=== PATIENT | female | born 1995 | race Two or more races ===

== ENCOUNTER 2022-10-21 19:08 | Inpatient (IN) | payer MEDICAID, SELFPAY ==
[2022-10-21] VITALS (44 sets, daily range): BP systolic 69–95; BP diastolic 33–59; PULSE 111–154; RESP 14–54; TEMP 36.6–39.5; O2SAT 86–98; BMI 25.7; BMI 24.9
--- NOTE | 2022-10-21 19:29 | XR_ITS ---
The [address] [address] Patient Name: CHINEDU VICTOR MRN: [id number] date: 1995 Sex: F Assigned Patient Location: ER Current Patient Location: ER Accession/Order Number: [id number] Exam Date: 10/21/2022 20:28 Report Date: 10/21/2022 20:43 At the request of: PRABHA ROQUE Procedure: XR chest 1V Exam: Radiographs: XR chest 1V Reason for exam: fever Comparison: None XR/XR chest 1V IMPRESSION: Unremarkable chest x-ray. Electronically authenticated by: ISAAC MEYER Date: 10/21/2022 20:43
--- NOTE | 2022-10-21 19:29 | ECG_ITS ---
The [facility] Test Date: 2022-10-21 Pat Name: CHINEDU VICTOR Department: Room: - Gender: Female Chief Design Engineer: : 1995 Requested By: [id number] Order Number: [id number] Reading MD: YURY SCHMID Measurements Intervals [place] Rate: 151 P: -66 AL: 116 QRS: 99 QRSD: 92 T: 49 QT: 282 QTc: 368 Interpretive Statements Sinus tachycardia 7102 Moderate right axis deviation 9140 abnormal rhythm ECG No previous ECG available for comparison Electronically Signed On 10-22-2022 7:11:35 EDT by YURY SCHMID
[2022-10-21 19:40] LABS: Basophils Percent Auto 0.2 % (0.2-2.0); Eosinophils Percent Auto 0.9 % (0.9-7.0); Hematocrit 33.9 % (36.0-48.0); Hemoglobin 11.4 g/dL (12.0-16.0); Immature Granulocytes Abs Auto 0.01 10^3/uL (0.00-0.03); Immature Granulocytes Pct Auto 0.2 % (0.0-0.5); Lymphocytes Absolute Auto 0.6 10^3/uL (1.2-3.8); Lymphocytes Percent Auto 13.8 % (20.5-60.0); Mean Corpuscular HGB Conc 33.6 g/dL (29.9-35.2); Mean Corpuscular Hemoglobin 27.7 pg (26.7-34.0); Mean Corpuscular Volume 82.3 fL (81.0-99.0); Mean Platelet Volume 9.5 fL (9.5-13.5); Monocytes Absolute Auto 0.1 10^3/uL (0.3-0.8); Monocytes Percent Auto 2.1 % (1.7-12.0); Neutrophils Absolute Auto 3.6 10^3/uL (1.4-6.5); Neutrophils Percent Auto 82.8 % (43.0-75.0); Platelet Count 229 10^3/uL (150-450); Red Blood Count 4.12 10^6/uL (4.20-5.40); Red Cell Distribution Width 14.5 % (11.0-15.0); White Blood Count 4.3 10^3/uL (4.0-11.0)
--- NOTE | 2022-10-21 19:50 | US_ITS ---
The [address] [address] Patient Name: CHINEDU VICTOR MRN: [id number] date: 1995 Sex: F Assigned Patient Location: ER Current Patient Location: [facility] Accession/Order Number: [id number] Exam Date: 10/21/2022 20:40 Report Date: 10/21/2022 21:44 At the request of: PRABHA ROQUE Procedure: US renal BI EXAM: Complete renal ultrasound REASON FOR EXAM: Female, 27 years, fever, pain. TECHNIQUE: Transabdominal ultrasound was performed with real-time and static grayscale imaging. TECHNICAL QUALITY: Technique is adequate. COMPARISON: None FINDINGS: RIGHT KIDNEY: Normal size of the kidney. The kidney measures 11.1 x 5.4 x 5.1 cm. The renal cortex appears somewhat echogenic relative to adjacent hepatic parenchyma suggesting medical renal disease. There is no demonstrated renal mass or cyst. There is no hydronephrosis. There is a 4 mm echogenic focus at the inferior pole of the right kidney suggesting a nonobstructing calculus. LEFT KIDNEY: Normal size of the kidney. The kidney measures 10.5 x 4.1 x 4.1 cm. Normal renal cortex. There is no demonstrated renal mass or cyst. There is no hydronephrosis. There are 2 small echogenic foci within the left kidney, the largest measuring 4 mm, suggesting nonobstructing renal calculi. Bladder: The bladder is nearly empty at the time of scanning. The bladder wall is not thickened. There is no visualized bladder wall mass. AORTA: Not imaged. IVC: Not imaged. US/US renal BI IMPRESSION: Bilateral nonobstructing renal calculi. No hydronephrosis. The right renal cortex is echogenic relative to adjacent hepatic parenchyma. This may represent medical renal disease. Electronically authenticated by: CARLENE DESAI Date: 10/21/2022 21:44
[2022-10-21 19:53] LABS: Alanine Aminotransferase 48 U/L (14-59); Albumin Globulin Ratio 0.8; Albumin Level 3.1 g/dL (3.4-5.0); Alkaline Phosphatase 154 U/L (46-116); Anion Gap 14.9; Aspartate Amino Transferase 34 U/L (15-37); BUN Creatinine Ratio 14.5; Bilirubin Total 1.2 mg/dL (0.2-1.0); Calcium 8.5 mg/dL (8.5-10.1); Carbon Dioxide 23.1 mmol/L (21.0-32.0); Chloride 98 mmol/L (98-107); Estimated GFR (African America >60 (>=60); Estimated GFR (Non-African Ame 53 (>=60); Globulin 3.7 g/dL; Glucose 131 mg/dL (74-106); Magnesium 1.7 mg/dL (1.8-2.4); Sodium 133 mmol/L (136-145); Total Protein 6.8 g/dL (6.4-8.2)
[2022-10-21] MEDS: IBUPROFEN 400 MG TABLET 800 MG PO (19:57)
[2022-10-21] MEDS: ACETAMINOPHEN 500 MG TABLET 1000 MG PO (19:57)
[2022-10-21] MEDS: ONDANSETRON PF 4 MG/2 ML VIAL IV (19:58)
[2022-10-21] MEDS: 0.9 % SODIUM CHLORIDE 1,000 ML 999 ML IV (19:59)
[2022-10-21] MEDS: CEFTRIAXONE 1,000 MG in 0.9 % SODIUM CHLORIDE 50 ML 100 MG IV (20:01)
[2022-10-21] MEDS: 0.9 % SODIUM CHLORIDE 1,000 ML 1000 ML IV ×2 (20:11→21:46)
[2022-10-21 20:41] LABS: Bilirubin Urine SMALL (NEGATIVE); Blood Urine LARGE (NEGATIVE); Clarity Urine CLEAR (CLEAR); Color Urine YELLOW (YELLOW); Glucose Urine UA NEGATIVE (NEGATIVE); Ketones Urine TRACE mg/dL (NEGATIVE); Leukocyte Esterase Urine LARGE (NEGATIVE); Nitrite Urine NEGATIVE (NEGATIVE); Protein Urine >=300 mg/dL (NEG/TRACE); Specific Gravity Urine 1.025 (1.005-1.025); pH Urine 5.5 (5.0-9.0)
[2022-10-21 20:43] LABS: Urine Microscopic Indicated YES
[2022-10-21] MEDS: POTASSIUM BICARBONATE/CIT 25 MEQ TABLET EFF 50 MEQ PO (20:53)
[2022-10-21] MEDS: MAGNESIUM SULFATE IN WATER 50 ML IV (20:54)
[2022-10-21 21:00] LABS: Bacteria Urine LARGE #/HPF (NONE SEEN); WBC Urine 20-50 #/HPF (NONE SEEN)
[2022-10-21 21:01] LABS: Cast Seen? SEEN #/LPF (NONE SEEN); Crystals Seen? None Seen #/HPF (None Seen); Fine Granular Casts Urine RARE; Mucus Urine NONE SEEN (NONE SEEN); Squamous Epithelial Cell Urine FEW #/LPF (NONE/RARE); Urine Culture Indicated YES
[2022-10-21 22:56] LABS: PCO2 VBG 34.9 mmHg (40.0-52.0); pH VBG 7.414 (7.330-7.430)
--- NOTE | 2022-10-21 23:26 | W.PM.TELEPN ---
Progress Note: Subjective Subjective Interval history: Pt is a 27F with PMH of Seizures who presents to the ED with complaint of flank pain and fevers. She was recently diagnosed wiht R UVJ stone, 1.5mm on Thursday, and since that time has progressively worsened. She reports Vomiting, fevers/chills, diminished appetite and poor PO intake, as well as dizziness and near syncope with ambulation. Her BP with noted to be 84/48 with a HR in the 160s on initial presentation as well as a fever of 103. She was given 3L NS and her BP remains low, though at this time she states she is feeling overall better than when she first arrived. Exam Narrative Exam Narrative: Gen: Cheerful, alert. NAD HEENT: NC/AT Neck: FROM CV: Tachycardic. No murmur Pulm: CTA B/L GI: Nontender Musculoskeletal: BURNS. Cap refill <2sec. No cyanosis or edema Neuro: AAOx3 Psych: Calm, Cooperative. Constitutional Vital Signs, click to edit/add: Last Vital Signs Temp 97.8 F 10/21/22 21:21 Pulse 123 H 10/21/22 22:00 Resp 34 H 10/21/22 22:00 BP 93/49 10/21/22 22:00 Pulse Ox 94 L 10/21/22 19:45 O2 Del Method Room Air 10/21/22 19:35 Progress Note: Objective Labs Labs: Short CBC 10/21/22 Range/Units 19:28 WBC 4.3 (4.0-11.0) 10^3/uL Hgb 11.4 L (12.0-16.0) g/dL Hct 33.9 L (36.0-48.0) % Plt Count 229 (150-450) 10^3/uL BMP 10/21/22 19:28 Sodium 133 L Potassium 3.0 L Chloride 98 Carbon Dioxide 23.1 BUN 18.0 Creatinine 1.24 H Glucose 131 H Calcium 8.5 Liver Function 10/21/22 Range/Units 19:28 Total Bilirubin 1.2 H (0.2-1.0) mg/dL AST 34 (15-37) U/L ALT 48 (14-59) U/L Alkaline Phosphatase 154 H (46-116) U/L Albumin 3.1 L (3.4-5.0) g/dL Urine 08/29/23 Range/Units 20:05 Urine Color Yellow (YELLOW) Urine Clarity Clear (CLEAR) Urine pH 5.5 (5.0-9.0) Ur Specific [place] 1.025 (1.005-1.025) Urine Protein >=300 A (NEG/TRACE) mg/dL Urine Glucose (UA) Negative (NEGATIVE) mg/dL Progress Note: A&P Assessment and Plan (1) Sepsis: Assessment and Plan: Tachycardia, Fever, Hypotension Continue IV Fluid Bolus another 1L Consider pressor support if fails to improve Pt currently awake and alert Cap refill <2sec. Monitor closely in IMU (2) Acute pyelonephritis: Assessment and Plan: Pancultures pending Continue empiric antibiotic coverage Follow up cultures (3) Acute hypokalemia: Assessment and Plan: Replete Monitor response (4) Hypomagnesemia: Assessment and Plan: Replete Monitor response Telemedicine Attestation Telemedicine Attestation I conducted this encounter from [[place]] via secure live, [id number] video conference with the patient, located at [facility] with [nurse]. Prior to the interview, the risks and benefits of telemedicine were discussed with the patient and verbal consent was obtained.
--- NOTE | 2022-10-21 23:47 | ED.ABDPAIN1 ---
HPI - Abdominal Pain General Chief Complaint: Abdominal Pain Stated Complaint: FLANK PAIN Time Seen by Provider: 10/21/22 19:29 Source: patient and family Mode of arrival: walk-in Limitations: no limitations History of Present Illness HPI narrative: Patient says emergency department complaining of right flank pain. Patient states she has been sick for approximately 2 weeks. She developed right flank pain on Thursday and went to [facility] emergency Department where she had blood work and a CT scan done and was found to have a 1.5 mm nephrolithiasis in the right UVJ. Patient states she was given IV fluids and Naprosyn and she went home. She states she was told to strain the urine but they did not give her a strainer. She does not know if she has passed a stone or not yet. She was given Flomax also. She has been taking it daily. Patient states she has vomited 2 times she developed a fever and is feeling very weak. She denies any hematuria or dysuria. She denies any vaginal bleeding, discharge. She denies any diarrhea. She denies any sore throat, chest pain, shortness of breath. Patient stated she was having a lot of palpitations. She denied any shortness of breath. Related Data Home Medications Medication Instructions Recorded Confirmed aripiprazole 10 mg tablet 10 mg PO DAILY 10/21/22 10/21/22 hydroxyzine pamoate 50 mg capsule 50 mg PO DAILY PRN anxiety 10/21/22 10/21/22 lamotrigine 100 mg tablet 100 mg PO BID 10/21/22 10/21/22 naproxen 500 mg tablet 500 mg PO Q8H 10/21/22 10/21/22 omeprazole 40 mg capsule,delayed 40 mg PO DAILY 10/21/22 10/21/22 release paroxetine HCl 30 mg tablet 30 mg PO DAILY 10/21/22 10/21/22 prazosin 1 mg capsule 1 mg PO DAILY 10/21/22 10/21/22 tamsulosin 0.4 mg capsule 0.4 mg PO DAILY 10/21/22 10/21/22 Allergies Allergy/AdvReac Type Severity Reaction Status Date / Time montelukast [From Singulair] AdvReac Mild Verified 10/21/22 19:13 Review of Systems ROS Status of ROS 10 or more systems reviewed and unremarkable except as noted in history and below [facility] Medical History (Updated 10/21/22 @ 23:12 by Kacy Dalton) Social History (Updated 10/21/22 @ 23:15 by Kacy Dalton) Within the past year, how often did you have a drink containing alcohol: monthly or less Within the past year, how often did you have six or more drinks on one occasion: never Second hand tobacco smoke exposure: Yes Non-prescribed substance use: denies use Previous occupational history: unemployed Highest level of school completed/degree received: high school graduate In a typical week, how many times do you talk on the telephone with family, friends, or neighbors: 3 or more times per week How often do you get together with friends or relatives: 3 or more times per week How often do you attend gnosticism or scientology services: never Do you belong to any clubs or organizations such as gnosticism groups unions, [employer] or athletic groups, or school groups: no Little interest or pleasure in doing things: not at all Feeling down, depressed, or hopeless: not at all Feel stressed/tense/nervous/anxious/difficulty sleeping: only a little Due to disability, difficulty making decisions: No Do you think of yourself as: straight/heterosexual Gender Identity: female Exam Narrative Exam Narrative: Nurses notes and vital signs reviewed and patient is not hypoxic. General: Ill-appearing, and in no apparent distress. Skin: Warm, dry, no pallor noted. No Rash Head: Normocephalic, atraumatic. Neck: Supple, non-tender. Eye: Pupils are equal, round and EOMI. No scleral icterus. Ears, Nose, Mouth, and Throat: TM clear, no posterior oropharynx erythema or nasal mucosal hypertrophy, uvula is mid-line Oral mucosa is dry Cardiovascular: Regular tachycardia without murmur, gallop or rub. Respiratory: No accessory muscle use or respiratory distress. Lungs are clear to auscultation, no wheezing, rales or rhonchi Chest Wall: no tenderness Back: No midline thoracic or lumbar vertebral tenderness. + right CVA tenderness Musculoskeletal: normal ROM, no calf or popliteal tenderness, no lower extremity edema/swelling GI: Abdomen is soft, non-distended. Normal bowel sounds. No tenderness to palpation. No rebound, guarding, or rigidity noted. Neurological: A&O x4. No cranial nerve dysfunction observed. No truncal ataxia. Moves all extremities. Sensation intact. Psychiatric: Cooperative and interactive. Normal mood and affect. Constitutional Vital Signs, click to edit/add: Last Vital Signs Temp 98 F 10/21/22 23:03 Pulse 122 H 10/21/22 23:56 Resp 22 10/21/22 23:30 BP 84/48 L 10/21/22 23:03 Pulse Ox 95 10/21/22 23:56 O2 Del Method Room Air 10/21/22 23:39 Course Vital Signs Vital signs: Vital Signs Pulse Oximetry 86 L 10/21/22 19:16 Temperature 98 F 10/21/22 23:03 Pulse Rate 122 H 10/21/22 23:56 Respiratory Rate 22 10/21/22 23:30 Blood Pressure 84/48 L 10/21/22 23:03 Pulse Oximetry 95 10/21/22 23:56 Oxygen Delivery Method Room Air 10/21/22 23:39 MDM - Abdominal Pain MDM Narrative Medical decision making narrative: On arrival to the emergency department the patient met sepsis criteria. She was tachycardia in the 160s, temperature 103, and hypotensive. Patient was immediately resuscitated with 30 no particular kilogram normal saline fluid boluses, her pressure improved to the low 90s and her heart rate came down to 122. Patient was given Toradol, acetaminophen, Zofran. She was given a gram of Rocephin after urinalysis showed a urinary tract infection. The patient had a bilateral kidney ultrasound which does not show any hydronephrosis. The patient has improved somewhat clinically she still with low blood pressure still tachycardic. She weren't hospitalization for observation to make sure she is improving. Patient was discussed with Dr. Landin who has accepted the patient. Differential Diagnosis Differential diagnosis: Likely abdominal pain Medical Records Attestation: I reviewed the patient's medical records. Medical records narrative: Records from [facility] were obtained and reviewed by me. They make part of the medical decision aching. Lab Data Attestation: I reviewed the patient's lab results. Labs: Lab Results 10/21/22 10/21/22 10/21/22 Range/Units 19:28 19:48 20:05 WBC 4.3 (4.0-11.0) 10^3/uL RBC 4.12 L (4.20-5.40) 10^6/uL Hgb 11.4 L (12.0-16.0) g/dL Hct 33.9 L (36.0-48.0) % MCV 82.3 (81.0-99.0) fL MCH 27.7 (26.7-34.0) pg MCHC 33.6 (29.9-35.2) g/dL RDW 14.5 (11.0-15.0) % Plt Count 229 (150-450) 10^3/uL MPV 9.5 (9.5-13.5) fL Neut % (Auto) 82.8 H (43.0-75.0) % Lymph % (Auto) 13.8 L (20.5-60.0) % [place] % (Auto) 2.1 (1.7-12.0) % Eos % (Auto) 0.9 (0.9-7.0) % Baso % (Auto) 0.2 (0.2-2.0) % Neut # (Auto) 3.6 (1.4-6.5) 10^3/uL Lymph # (Auto) 0.6 L (1.2-3.8) 10^3/uL [place] # (Auto) 0.1 L (0.3-0.8) 10^3/uL Eos # (Auto) 0.0 (0.0-0.7) 10^3/uL Baso # (Auto) 0.0 (0.0-0.1) 10^3/uL Abs Immat Gran (auto) 0.01 (0.00-0.03) 10^3/uL Imm/Tot Granulo (auto) 0.2 (0.0-0.5) % VBG pH 7.414 (7.330-7.430) VBG pCO2 34.9 L (40.0-52.0) mmHg Sodium 133 L (136-145) mmol/L Potassium 3.0 L (3.5-5.1) mmol/L Chloride 98 (98-107) mmol/L Carbon Dioxide 23.1 (21.0-32.0) mmol/L Anion Gap 14.9 BUN 18.0 (7.0-18.0) mg/dL Creatinine 1.24 H (0.55-1.02) mg/dL Est GFR ( Amer) >60 (>=60) Est GFR (Non-Af Amer) 53 L (>=60) BUN/Creatinine Ratio 14.5 Glucose 131 H (74-106) mg/dL Lactate 2.0 (0.4-2.0) mmol/L Calcium 8.5 (8.5-10.1) mg/dL Magnesium 1.7 L (1.8-2.4) mg/dL Total Bilirubin 1.2 H (0.2-1.0) mg/dL AST 34 (15-37) U/L ALT 48 (14-59) U/L Alkaline Phosphatase 154 H (46-116) U/L Total Protein 6.8 (6.4-8.2) g/dL Albumin 3.1 L (3.4-5.0) g/dL Globulin 3.7 g/dL Albumin/Globulin Ratio 0.8 Urine Color Yellow (YELLOW) Urine Clarity Clear (CLEAR) Urine pH 5.5 (5.0-9.0) Ur Specific [place] 1.025 (1.005-1.025) Urine Protein >=300 A (NEG/TRACE) mg/dL Urine Glucose (UA) Negative (NEGATIVE) mg/dL Urine Ketones Trace A (NEGATIVE) mg/dL Urine Occult Blood Large A (NEGATIVE) Urine Nitrite Negative (NEGATIVE) Urine Bilirubin Small A (NEGATIVE) Urine Urobilinogen 2.0 A (0.2-1.0) EU/dL Ur Leukocyte Esterase Large A (NEGATIVE) Urine RBC 10-20 A (0-2) #/HPF Urine WBC 20-50 A (NONE SEEN) #/HPF Ur Squamous Epith Cells Few A (NONE/RARE) #/LPF Urine Crystals None seen (None Seen) #/HPF Urine Bacteria Large A (NONE SEEN) #/HPF Urine Casts Seen A (NONE SEEN) #/LPF Fine Granular Casts Rare Urine Mucus None seen (NONE SEEN) Ur Culture Indicated? Yes ECG Data Attestation: I personally reviewed and interpreted this ECG as follows: Interpretation: His tachycardia without any acute ischemic changes. Critical Care Time Critical Care Time Critical Care Time: Yes Total Critical Care Time: 35 Attestation: Critical Care Time: 35 minutes, critical care time is separate from any procedures that are performed. The following was considered in the determination of critical care but not limited to the level medical decision-making, intensive cardiac and/or respiratory monitor, frequent vital sign monitoring, evaluation of laboratory studies, evaluation of a radiographic studies, oxygen monitoring and constant monitoring. Discharge Plan Discharge Chief Complaint: Abdominal Pain Clinical Impression: Acute pyelonephritis, Sepsis, Acute hypokalemia, Hypomagnesemia Patient Disposition: Admitted as Observation Time of Disposition Decision: 22:04 Condition: Good Discharge Date/Time: 10/21/22 22:58
[2022-10-22] VITALS (36 sets, daily range): BP systolic 75–115; BP diastolic 52–74; PULSE 91–141; RESP 14–30; TEMP 36.4–38.2; O2SAT 83–97; BMI 24.9
[2022-10-22] MEDS: 0.9 % SODIUM CHLORIDE 1,000 ML 1000 ML IV (00:21)
[2022-10-22] MEDS: ENOXAPARIN SODIUM 40 MG/0.4 ML SYRINGE SUBQ ×2 (00:21→21:21)
[2022-10-22] MEDS: LAMOTRIGINE 100 MG TABLET PO ×4 (00:46→21:23)
[2022-10-22] MEDS: PAROXETINE HCL 20 MG TABLET 30 MG PO ×2 (00:47→21:22)
[2022-10-22] MEDS: 0.9 % SODIUM CHLORIDE 1,000 ML 100 ML IV (01:28)
[2022-10-22 05:10] LABS: Basophils Percent Auto 0.2 % (0.2-2.0); Hematocrit 28.6 % (36.0-48.0); Hemoglobin 9.3 g/dL (12.0-16.0); Immature Granulocytes Abs Auto 0.09 10^3/uL (0.00-0.03); Immature Granulocytes Pct Auto 0.7 % (0.0-0.5); Lymphocytes Absolute Auto 1.1 10^3/uL (1.2-3.8); Lymphocytes Percent Auto 8.4 % (20.5-60.0); Mean Corpuscular HGB Conc 32.5 g/dL (29.9-35.2); Mean Corpuscular Hemoglobin 27.4 pg (26.7-34.0); Mean Corpuscular Volume 84.4 fL (81.0-99.0); Mean Platelet Volume 9.6 fL (9.5-13.5); Monocytes Absolute Auto 0.6 10^3/uL (0.3-0.8); Neutrophils Absolute Auto 11.1 10^3/uL (1.4-6.5); Neutrophils Percent Auto 85.7 % (43.0-75.0); Platelet Count 190 10^3/uL (150-450); Red Blood Count 3.39 10^6/uL (4.20-5.40); Red Cell Distribution Width 14.7 % (11.0-15.0); White Blood Count 12.9 10^3/uL (4.0-11.0)
[2022-10-22 05:27] LABS: Alanine Aminotransferase 36 U/L (14-59); Albumin Globulin Ratio 0.7; Albumin Level 2.3 g/dL (3.4-5.0); Alkaline Phosphatase 115 U/L (46-116); Anion Gap 12.5; Aspartate Amino Transferase 24 U/L (15-37); BUN Creatinine Ratio 10.9; Bilirubin Total 1.1 mg/dL (0.2-1.0); Calcium 7.3 mg/dL (8.5-10.1); Carbon Dioxide 23.4 mmol/L (21.0-32.0); Chloride 110 mmol/L (98-107); Estimated GFR (African America >60 (>=60); Estimated GFR (Non-African Ame 55 (>=60); Globulin 3.1 g/dL; Glucose 137 mg/dL (74-106); Magnesium 2.3 mg/dL (1.8-2.4); Potassium 3.9 mmol/L (3.5-5.1); Sodium 142 mmol/L (136-145); Total Protein 5.4 g/dL (6.4-8.2)
--- NOTE | 2022-10-22 06:19 | XR_ITS ---
The [address] [address] Patient Name: CHINEDU VICTOR MRN: [id number] date: 1995 Sex: F Assigned Patient Location: ICU Current Patient Location: ICU Accession/Order Number: [id number] Exam Date: 10/22/2022 06:35 Report Date: 10/22/2022 07:15 At the request of: RIDDHI MCNAIR Procedure: XR chest 1V EXAMINATION: XR chest 1V HISTORY: sob, chest pain COMPARISON: XR chest 10/21/2022 FINDINGS: LUNGS: Mild haziness and stranding within lung bases. VASCULATURE: No increased pulmonary vasculature. PLEURA: No pneumothorax, effusion, or pleural thickening. CARDIAC: No cardiomegaly or cardiac silhouette abnormality. MEDIASTINUM: No visible mass or adenopathy. BONES: No fracture or visible bone lesion. OTHER: Negative. XR/XR chest 1V IMPRESSION: 1. Mild bibasilar atelectasis versus infiltrates; new since prior study. Electronically authenticated by: MAXIMINO VICTOR Date: 10/22/2022 07:15
[2022-10-22 06:36] LABS: Troponin I High Sensitivity 20.7 pg/mL (4.0-51.3)
[2022-10-22 07:47] LABS: A. calcoaceticus-baumannii Cpx NOT DETECTED (NOT DETECTE); Bacteroides fragilis NOT DETECTED (NOT DETECTE); Candida albicans NOT DETECTED (NOT DETECTE); Candida auris NOT DETECTED (NOT DETECTE); Candida glabrata NOT DETECTED (NOT DETECTE); Candida krusei NOT DETECTED (NOT DETECTE); Candida parapsilosis NOT DETECTED (NOT DETECTE); Candida tropicalis NOT DETECTED (NOT DETECTE); Cryptococcus neoformans/gattii NOT DETECTED (NOT DETECTE); Enterobacter cloacae complex NOT DETECTED (NOT DETECTE); Enterococcus faecalis NOT DETECTED (NOT DETECTE); Enterococcus faecium NOT DETECTED (NOT DETECTE); Haemophilus influenzae NOT DETECTED (NOT DETECTE); Klebsiella aerogenes NOT DETECTED (NOT DETECTE); Klebsiella pneumoniae group NOT DETECTED (NOT DETECTE); Listeria monocytogenes NOT DETECTED (NOT DETECTE); Neisseria meningitidis NOT DETECTED (NOT DETECTE); Proteus spp. NOT DETECTED (NOT DETECTE); Pseudomonas aeruginosa NOT DETECTED (NOT DETECTE); Salmonella spp. NOT DETECTED (NOT DETECTE); Serratia marcescens NOT DETECTED (NOT DETECTE); Staphylococcus epidermidis NOT DETECTED (NOT DETECTE); Staphylococcus lugdunensis NOT DETECTED (NOT DETECTE); Staphylococcus spp. NOT DETECTED (NOT DETECTE); Stenotrophomonas maltophilia NOT DETECTED (NOT DETECTE); Streptococcus agalactiae NOT DETECTED (NOT DETECTE); Streptococcus pneumoniae NOT DETECTED (NOT DETECTE); Streptococcus pyogenes NOT DETECTED (NOT DETECTE); Streptococcus spp. NOT DETECTED (NOT DETECTE)
[2022-10-22] MEDS: ONDANSETRON PF 4 MG/2 ML VIAL IV ×2 (07:55→14:47)
--- NOTE | 2022-10-22 08:11 | PM.HP ---
H&P: HPI History of Present Illness Chief complaint: FLANK PAIN, SEPSIS, PYELONEPHRITIS Narrative: patient is a 27-year-old female with past medical history of epilepsy who presented to the Emergency Room last night with complaints of overall malaise nausea and vomiting and some right flank pain. Patient reports she has been sick for approximately two weeks. She presented to the Emergency Room and [facility] and was found to have a nonobstructing 1.5 mm stone in the right UVJ. She was discharged home with naproxen, Flomax and was given IV fluids. She reports that she continued to get worse and presented back to [place] [facility] last night with right flank pain. She is also been experiencing some nausea and vomiting for approximately twenty-four hours she denies any diarrhea she denies any burning with urination or blood in her urine. She had not been straining her urine because they didn't have a strainer. She denies any bladder urine or renal issues in the past. She has not had any history of kidney stones before. He only reports a history of epilepsy and she has been compliant with her medications. Patient was found to be septic in the emergency room. She was given approximately 4 L of fluid, and was given Rocephin for a presumed urinary tract infection. She had a fever of one oh three, tachycardic, hypotensive. She was admitted to ICU for further plan of care. This morning she notes improved nausea and vomiting. She denies diarrhea and also reports some mild chest pain. Review of Systems ROS Narrative ROS: a complete review of systems were reviewed with patient and are positive as below or listed in History of Chief Complaint. General: no fever, chills, night sweats Head: no headache, trauma, visual changes, nausea or vomiting Skin: no reported rashes, itching or sores Eyes: no blurriness of vision Ears: no reported hearing loss, vertigo, earache, or tinnitus Throat: no sore throat, hoarseness, swelling of neck, or tongue pain Heart: no chest pain Lungs: no shortness of breath or cough GI: diarrhea, some vomiting/nausea Urinary: no urinary urgency, frequency or pain, right flank pain Neuro: no numbness or tingling HEM: no bleeding issues or bruising ENDO: no thyroid problems Psych: no anxiety or depression [facility] Medical History (Updated 10/22/22 @ 10:08 by Jazmine Herrera DO) Social History Within the past year, how often did you have a drink containing alcohol: monthly or less Within the past year, how often did you have six or more drinks on one occasion: never Second hand tobacco smoke exposure: Yes Non-prescribed substance use: denies use Previous occupational history: unemployed Highest level of school completed/degree received: high school graduate In a typical week, how many times do you talk on the telephone with family, friends, or neighbors: 3 or more times per week How often do you get together with friends or relatives: 3 or more times per week How often do you attend moravian or adventist services: never Do you belong to any clubs or organizations such as moravian groups unions, [employer] or athletic groups, or school groups: no Little interest or pleasure in doing things: not at all Feeling down, depressed, or hopeless: not at all Feel stressed/tense/nervous/anxious/difficulty sleeping: only a little Due to disability, difficulty making decisions: No Do you think of yourself as: straight/heterosexual Gender Identity: female Meds Home Medications and Allergies Home Medications Medication Instructions Recorded Confirmed Type aripiprazole 10 mg tablet 10 mg PO DAILY 10/21/22 10/21/22 History hydroxyzine pamoate 50 mg capsule 50 mg PO DAILY PRN anxiety 10/21/22 10/21/22 History lamotrigine 100 mg tablet 100 mg PO BID 10/21/22 10/21/22 History naproxen 500 mg tablet 500 mg PO Q12H 10/21/22 10/22/22 History omeprazole 40 mg capsule,delayed 40 mg PO DAILY 10/21/22 10/21/22 History release paroxetine HCl 30 mg tablet 30 mg PO .QHS 10/21/22 10/22/22 History prazosin 1 mg capsule 1 mg PO DAILY 10/21/22 10/21/22 History tamsulosin 0.4 mg capsule 0.4 mg PO DAILY 10/21/22 10/21/22 History Allergies Allergy/AdvReac Type Severity Reaction Status Date / Time montelukast [From Singulair] Allergy Mild Rash Verified 10/22/22 08:49 Exam Narrative Exam Narrative: General: Patient is alert, and oriented to person, place and time with normal affect, proper hygiene Skin: no visible rashes, or ulcers Head: atraumatic, acephalic Eyes: PERRLA, no nystagmus present, conjunctiva clear, no scleral icterus Ears: normal Tympanic Membrane, normal gross auditory acuity Nose: symmetric, no discharge, no maxillary or frontal sinus tenderness Mouth/Throat: erythema, no exudate, or tonsillar enlargement, normal dentition Neck: no masses palpated, normal thyroid, no JVD or audible carotid bruits Heart: Normal rate and rhythm, no murmurs/rubs/gallops Lungs: no audible wheezes, crackles and normal breath sounds all lung muir Abdomen: Normal audible bowel sounds, no distension, No palpable masses, no organomegaly, no rebound/guarding/ or rigidity Musculoskeletal: muscle atrophy noted, ROM is limited due to being in hospital bed, no swelling bilateral lower extremities Vascular: Normal carotid, radial, femoral, posterior tibial, and dorsalis pedis pulses Lymph: no supraclavicular, axillary, or anterior/posterior cervical adenopathy Neuro: CN II-X grossly intact, normal sensation upper and lower extremities Constitutional Vital Signs, click to edit/add: Last Vital Signs Temp 97.7 F 10/22/22 05:35 Pulse 97 H 10/22/22 04:00 Resp 16 10/22/22 04:00 BP 93/68 10/22/22 04:00 Pulse Ox 94 L 10/22/22 04:00 O2 Del Method Room Air 10/21/22 23:39 Results Labs Labs: Short CBC 10/21/22 10/21/22 Range/Units 04:50 19:28 WBC 12.9 H 4.3 (4.0-11.0) 10^3/uL Hgb 9.3 L 11.4 L (12.0-16.0) g/dL Hct 28.6 L 33.9 L (36.0-48.0) % Plt Count 190 229 (150-450) 10^3/uL BMP 10/21/22 10/21/22 04:50 19:28 Sodium 142 133 L Potassium 3.9 3.0 L Chloride 110 H 98 Carbon Dioxide 23.4 23.1 BUN 13.0 18.0 Creatinine 1.19 H 1.24 H Glucose 137 H 131 H Calcium 7.3 L 8.5 Liver Function 10/21/22 10/21/22 Range/Units 04:50 19:28 Total Bilirubin 1.1 H 1.2 H (0.2-1.0) mg/dL AST 24 34 (15-37) U/L ALT 36 48 (14-59) U/L Alkaline Phosphatase 115 154 H (46-116) U/L Albumin 2.3 L 3.1 L (3.4-5.0) g/dL Urine 10/21/22 Range/Units 20:05 Urine Color Yellow (YELLOW) Urine Clarity Clear (CLEAR) Urine pH 5.5 (5.0-9.0) Ur Specific [place] 1.025 (1.005-1.025) Urine Protein >=300 A (NEG/TRACE) mg/dL Urine Glucose (UA) Negative (NEGATIVE) mg/dL ABG ABG results: 10/21/22 19:48 VBG pH 7.414 VBG pCO2 34.9 L Assessment and Plan Assessment and Plan (1) Acute pyelonephritis: Assessment and Plan: urine culture pending but blood cultures positive for Ecoli and Enterobacter, currently on Rocephin. May change once C&S come back, continue IVF, straining urine, may also repeat CT scan, awaiting read from [facility]. (2) Sepsis: Assessment and Plan: he is found to have a temperature 103 degrees Fahrenheit, tachycardic with heart rate in the 120s, hypotensive 80s over 50s. Sepsis protocol was initiated with rapid bolus fluid resuscitation. No further fever, heart rate has improved and blood pressure has also improved. Cultures are pending however preliminary culture positive for Escherichia coli and Enterobacter Qualifiers: Sepsis type: Escherichia coli Severe sepsis acute organ dysfunction type: acute renal failure (3) Acute renal failure: Assessment and Plan: secondary to sepsis and infection (4) Acute hypokalemia: Assessment and Plan: most likely dilutional effect however will replace with Klor-Con 20 mEq twice a day (5) Calculus of both kidneys: Assessment and Plan: non obstructive, ultrasound done, awaiting CT results from [facility], low threshold for repeat (6) Hypomagnesemia: Assessment and Plan: daily replaces needed (7) Seizures: Assessment and Plan: patient follows with neurology clinic clinic, continue home medication she has been compliant Plan patient is full code Lovenox for deep vein thrombosis prophylaxis Patient as inpatient status secondary to her sepsis and requiring ICU status for current condition.
--- NOTE | 2022-10-22 09:02 | CM.NOTE ---
Rounding with Dr. Herrera. Pt. in room, no visitors at this time. Continue to follow for any discharge needs. Mother expected to be here soon and Dr. Herrera stated she will [place] back to talk with her. Patient denies any other needs. Awaiting further test results.
[2022-10-22 09:04] LABS: CTX-M NOT DETECTED (NOT DETECTE); IMP NOT DETECTED (NOT DETECTE); KPC NOT DETECTED (NOT DETECTE); NDM NOT DETECTED (NOT DETECTE); OXA-48-like NOT DETECTED (NOT DETECTE); VIM NOT DETECTED (NOT DETECTE); mcr-1 NOT DETECTED (NOT DETECTE)
[2022-10-22 09:13] LABS: Enterobacterales DETECTED (NOT DETECTE)
[2022-10-22] MEDS: TAMSULOSIN HCL 0.4 MG CAPSULE PO (09:41)
[2022-10-22] MEDS: ARIPIPRAZOLE 5 MG TABLET 10 MG PO (09:42)
[2022-10-22] MEDS: POTASSIUM CHLORIDE 10 MEQ ER TABLET 20 MEQ PO (09:42)
[2022-10-22] MEDS: CEFTRIAXONE 1,000 MG in 0.9 % SODIUM CHLORIDE 50 ML 100 MG IV (09:43)
[2022-10-22] MEDS: OMEPRAZOLE 40 MG CAPSULE.DR PO (09:46)
--- NOTE | 2022-10-22 10:06 | PC.NURSE ---
updated with nely in blood cultures. Along with increased mausea and vomiting up pills. Mother requested to speak with >
[2022-10-22] MEDS: LACTATED RINGER'S SOLUTION 1,000 ML 125 ML IV ×2 (10:54→19:24)
[2022-10-22 11:20] LABS: Lactate/Lactic Acid 1.4 mmol/L (0.4-2.0)
[2022-10-22] MEDS: PROMETHAZINE HCL 25 MG TABLET PO (11:36)
--- NOTE | 2022-10-22 11:41 | PC.NURSE ---
Continues having nausea, received new orders from for PRN. Pt did eat bites and sips, still has moderate nausea. Mother remains at bedside.
[2022-10-22] MEDS: PIPERACILLIN SODIUM/TAZOBACTAM 3.375 GM in 0.9 % SODIUM CHLORIDE 50 ML IV ×2 (12:01→21:20)
[2022-10-22 14:34] LABS: Adenovirus NOT DETECTED (NOT DETECTE); Bordetella parapertussis NOT DETECTED (NOT DETECTE); Coronavirus 229E NOT DETECTED (NOT DETECTE); Coronavirus HKU1 NOT DETECTED (NOT DETECTE); Coronavirus NL63 NOT DETECTED (NOT DETECTE); Coronavirus OC43 NOT DETECTED (NOT DETECTE); Human Metapneumovirus NOT DETECTED (NOT DETECTE); Human Rhinovirus/Enterovirus NOT DETECTED (NOT DETECTE); Influenza A NOT DETECTED (NOT DETECTE); Influenza B NOT DETECTED (NOT DETECTE); Mycoplasma pneumoniae NOT DETECTED (NOT DETECTE); Parainfluenza Virus 1 NOT DETECTED (NOT DETECTE); Parainfluenza Virus 2 NOT DETECTED (NOT DETECTE); Parainfluenza Virus 3 NOT DETECTED (NOT DETECTE); Parainfluenza Virus 4 NOT DETECTED (NOT DETECTE); Respiratory Syncytial Virus NOT DETECTED (NOT DETECTE); SARS-CoV-2 NOT DETECTED (NOT DETECTE)
[2022-10-22] MEDS: HYDROXYZINE PAMOATE 25 MG CAPSULE 50 MG PO (15:59)
--- NOTE | 2022-10-22 17:01 | DIETREC ---
Dietary consult and nutrition assessment completed this date. Recommend Bhaskar eat food items she is able to tolerate w/o N/V at this time, even if amounts do not meet her estimated nutrient requirements. Intakes can be expected to improve as infection/inflammation resolve and alleviate s/sx N/V. Dietitian will continue to follow PRN.
[2022-10-22 18:18] LABS: Anion Gap 10.2; BUN Creatinine Ratio 10.9; Calcium 7.6 mg/dL (8.5-10.1); Carbon Dioxide 23.1 mmol/L (21.0-32.0); Chloride 111 mmol/L (98-107); Estimated GFR (African America >60 (>=60); Estimated GFR (Non-African Ame >60 (>=60); Glucose 179 mg/dL (74-106); Magnesium 2.1 mg/dL (1.8-2.4); Potassium 3.3 mmol/L (3.5-5.1); Sodium 141 mmol/L (136-145)
--- NOTE | 2022-10-22 20:30 | CT_ITS ---
[address] [address] Patient Name: CHINEDU VICTOR MRN: [facility]:[id number] date: 1995 Sex: F Assigned Patient Location: ICU Current Patient Location: ICU Accession/Order Number: [id number] Exam Date: 10/22/2022 22:18 Report Date: 10/22/2022 23:12 At the request of: FIORDALIZA LYNN Procedure: CT angio chest EXAM: CT angio chest HISTORY: acute hypoxia 82%ra, tachycardia. Suspicion for pulmonary embolism COMPARISON: Chest x-ray 10/22/2022 TECHNIQUE: Multiple axial views CT a chest PE protocol after administration of 100 mL Omnipaque 350 IV contrast. Coronal sagittal reformats. MIPS and/or similar series performed. 3-D reconstruction of the vasculature. FINDINGS: No evidence for acute pulmonary embolism from the main to the bilateral segmental pulmonary artery level. The bilateral subsegmental pulmonary arteries are obscured by respiratory motion. Multifocal moderate bilateral lower lobes lung consolidations are suspicious for infectious or inflammatory pneumonitis. Diffuse bilateral upper and lower lung groundglass opacities reflecting pulmonary edema. Small bilateral pleural effusions. Central airway is patent. Borderline prominent heart size with trace pericardial effusion, mediastinal edema, and pericardial recess fluid. No pneumomediastinum. Moderate size hiatal hernia. No acute bony abnormality. CT/CT angio chest IMPRESSION: No evidence for acute pulmonary embolism from the main to the bilateral segmental pulmonary artery level. The bilateral subsegmental pulmonary arteries are obscured by respiratory motion. Multifocal moderate bilateral lower lobes lung consolidations are suspicious for infectious or inflammatory pneumonitis. Correlate clinically. Diffuse bilateral upper and lower lung groundglass opacities reflecting pulmonary edema. Small bilateral pleural effusions. Correlate clinically for sequela volume overload or underlying heart congestion. Borderline prominent heart size with trace pericardial effusion, mediastinal edema, and pericardial recess fluid. No pneumomediastinum. Moderate size hiatal hernia. Electronically authenticated by: KIESHA CUMMINS Date: 10/22/2022 23:12
[2022-10-22] MEDS: POTASSIUM BICARBONATE/CIT 25 MEQ TABLET EFF 50 MEQ PO (21:21)
[2022-10-22] MEDS: ACETAMINOPHEN 325 MG TABLET 650 MG PO (21:22)
[2022-10-23] VITALS (111 sets, daily range): BP systolic 105–123; BP diastolic 66–77; PULSE 83–146; RESP 15–143; TEMP 36.5–36.8; O2SAT 91–100
[2022-10-23] MEDS: FUROSEMIDE 40 MG/4 ML VIAL IVP (01:00)
[2022-10-23] MEDS: PIPERACILLIN SODIUM/TAZOBACTAM 3.375 GM in 0.9 % SODIUM CHLORIDE 50 ML IV ×3 (04:21→20:44)
[2022-10-23 05:11] LABS: Basophils Percent Auto 0.3 % (0.2-2.0); Eosinophils Absolute Auto 0.1 10^3/uL (0.0-0.7); Eosinophils Percent Auto 0.5 % (0.9-7.0); Hematocrit 31.4 % (36.0-48.0); Hemoglobin 10.3 g/dL (12.0-16.0); Immature Granulocytes Abs Auto 0.11 10^3/uL (0.00-0.03); Immature Granulocytes Pct Auto 0.8 % (0.0-0.5); Lymphocytes Absolute Auto 2.4 10^3/uL (1.2-3.8); Lymphocytes Percent Auto 18.3 % (20.5-60.0); Mean Corpuscular HGB Conc 32.8 g/dL (29.9-35.2); Mean Corpuscular Volume 82.4 fL (81.0-99.0); Monocytes Absolute Auto 1.3 10^3/uL (0.3-0.8); Monocytes Percent Auto 10.2 % (1.7-12.0); Neutrophils Absolute Auto 9.1 10^3/uL (1.4-6.5); Neutrophils Percent Auto 69.9 % (43.0-75.0); Platelet Count 261 10^3/uL (150-450); Red Blood Count 3.81 10^6/uL (4.20-5.40); Red Cell Distribution Width 15.1 % (11.0-15.0); White Blood Count 13.1 10^3/uL (4.0-11.0)
[2022-10-23 05:36] LABS: Alanine Aminotransferase 31 U/L (14-59); Albumin Globulin Ratio 0.6; Albumin Level 2.2 g/dL (3.4-5.0); Alkaline Phosphatase 132 U/L (46-116); Anion Gap 9.5; Aspartate Amino Transferase 15 U/L (15-37); BUN Creatinine Ratio 8.1; Bilirubin Total 0.7 mg/dL (0.2-1.0); Calcium 8.1 mg/dL (8.5-10.1); Carbon Dioxide 26.8 mmol/L (21.0-32.0); Chloride 108 mmol/L (98-107); Estimated GFR (African America >60 (>=60); Estimated GFR (Non-African Ame >60 (>=60); Globulin 3.7 g/dL; Glucose 106 mg/dL (74-106); Potassium 3.3 mmol/L (3.5-5.1); Sodium 141 mmol/L (136-145); Total Protein 5.9 g/dL (6.4-8.2)
[2022-10-23] MEDS: OMEPRAZOLE 40 MG CAPSULE.DR PO (05:54)
--- NOTE | 2022-10-23 06:37 | CA_ITS ---
Patient: CHINEDU VICTOR Exam Date: 10/23/2022 : 1995 Gender:F Ordering : JACIEL BOATENG . Admission #: [id number] Family : Order #: [id number] CLICK HERE TO VIEW EXAM ECHOCARDIOGRAM REPORT PROCEDURE: CA ECHO DOPPLER COMPLETE INDICATIONS: Elevated Probnp, sepsis COMPARISON: None. DESCRIPTION: COMPLETE ECHOCARDIOGRAM Real-time transthoracic echocardiography with 2D, M-mode, spectral and color flow Doppler performed. QUALITY: Technical quality was good. LEFT VENTRICLE: Normal chamber size. Normal left ventricular wall thickness. Normal systolic function. LV EF: Normal left ventricular ejection fraction, (>55%). DIASTOLIC: Normal diastolic function. ATRIAL SEPTUM: LEFT ATRIUM: Normal chamber size. RIGHT ATRIUM: Normal chamber size. RIGHT VENTRICLE: Normal chamber size. Normal right ventricular systolic function. TRICUSPID VALVE: Normal mobility and thickness. No stenosis with trivial regurgitation. No evidence of pulmonary hypertension. RVSP 34 mmHg MITRAL VALVE: Normal mobility and thickness. No evidence of mitral valve stenosis. There is no mitral annular calcification. Mild mitral regurgitation. AORTIC VALVE: Normal trileaflet appearance. No visible sclerosis. Normal leaflet mobility. No evidence of aortic valve stenosis. No aortic regurgitation. AORTIC ROOT: Normal diameter and appearance. PULMONIC VALVE: Normal thickness and mobility. No stenosis. Trivial regurgitation. PERICARDIUM: No evidence of pericardial effusion. IVC: Not well visualized. PLEURA: CONCLUSION: 1. Normal ventricular function. LVEF is 60%. 2. No significant valvular dysfunction. 3. Normal right-sided pressures. 4. No pericardial effusion. Adult Echocardiography Procedure Report Left Ventricle LVEDD (3.7 - 5.6 cm): 4.40 cm LVESD (2.2 - 4.0 cm): 2.86 cm LVIVS thickness (0.6 - 1.2 cm): 0.80 cm LVPW thickness (0.5 - 1.0 cm): 0.75 cm e': 0.13 m/s E - e': 5.86 LVOT Max Gradient: 4.96 mm[Hg], 3.66 mm[Hg], 4.70 mm[Hg] LVOT Area (cm2): 1.05 m/s Peak Velocity (LVOT): 1.11 m/s, 0.96 m/s, 1.08 m/s Mean Velocity (LVOT): 0.73 m/s LVOT Diameter 1.87 cm Left Atrium LA Volume Index (2D A2C): 21.67 ml/m2 Left Atrium Systolic Dimension: 3.11 cm Mitral Valve MV E to A Ratio: 1.30, 1.58 Mitral Valve A-Wave Peak Velocity: 0.52 m/s Mitral Valve E-Wave Peak Velocity: 0.75 m/s Right Ventricle Aorta AO Root Diam: 2.86 cm Ascending Ao Diam: 2.06 cm Aortic Valve AoV Area (Peak Catalino): 2.03 cm2, 2.15 cm2, 1.85 cm2 AoV Area (VTI): 1.76 cm2, 1.70 cm2, 1.77 cm2 Peak Velocity(Antegrade Flow): 1.42 m/s, 1.42 m/s Peak Gradient(Antegrade Flow): 8.08 mm[Hg], 8.08 mm[Hg] Mean Velocity(Antegrade Flow): 1.06 m/s, 1.01 m/s Mean Gradient(Antegrade Flow): 5.02 mm[Hg], 4.55 mm[Hg] Velocity Time Integral: 28.03 cm, 26.71 cm Tricuspid Valve Peak Velocity (Regurgitant Flow): 2.81 m/s, 2.65 m/s Pulmonic Valve Peak Velocity: 1.24 m/s Peak Gradient: 5.51 mm[Hg], 6.88 mm[Hg] Right Atrium Dictated by: Zelalem Kessler M.D. on 10/23/2022 at 12:43 Approved by: Zelalem Kessler M.D. on 10/23/2022 at 12:46
[2022-10-23] MEDS: LAMOTRIGINE 100 MG TABLET PO ×2 (08:06→21:15)
[2022-10-23] MEDS: TAMSULOSIN HCL 0.4 MG CAPSULE PO (08:06)
[2022-10-23] MEDS: ARIPIPRAZOLE 5 MG TABLET 10 MG PO (08:06)
[2022-10-23] MEDS: ACETAMINOPHEN 325 MG TABLET 650 MG PO ×2 (08:25→13:01)
--- NOTE | 2022-10-23 08:27 | PM.PN ---
Progress Note: Subjective Subjective Interval history: patient is a 27-year-old female with past medical history of epilepsy who presented to the Emergency Room last night with complaints of overall malaise nausea and vomiting and some right flank pain. Patient reports she has been sick for approximately two weeks. She presented to the Emergency Room and [place] and was found to have a nonobstructing 1.5 mm stone in the right UVJ. She was discharged home with naproxen, Flomax and was given IV fluids. She reports that she continued to get worse and presented back to [place] [facility] last night with right flank pain. She is also been experiencing some nausea and vomiting for approximately twenty-four hours she denies any diarrhea she denies any burning with urination or blood in her urine. She had not been straining her urine because they didn't have a strainer. She denies any bladder urine or renal issues in the past. She has not had any history of kidney stones before. He only reports a history of epilepsy and she has been compliant with her medications. Patient was found to be septic in the emergency room. She was given approximately 4 L of fluid, and was given Rocephin for a presumed urinary tract infection. She had a fever of 103, tachycardic, hypotensive. She was admitted to ICU for further plan of care. overnight events for the patient included becoming more hypoxic and short of breath. Pulse ox dropped into the high 80s, patient was provided oxygen, CTA of the chest was obtained which showed no pulmonary emboli, however bibasilar and pneumonia was present. Also presence of possible pulmonary edema so patient was also given Lasix 40 mg IV ?1. this morning patient is comfortable on room air. She appears in no acute distress. And states overall she feels much improved compared to last night and even yesterday. Fluids have also been stopped. Exam Narrative Exam Narrative: General: Patient is alert, and oriented to person, place and time with normal affect, proper hygiene Skin: no visible rashes, or ulcers Head: atraumatic, acephalic Eyes: PERRLA, no nystagmus present, conjunctiva clear, no scleral icterus Ears: normal gross auditory acuity Nose: symmetric, no discharge, no maxillary or frontal sinus tenderness Mouth/Throat: no erythema, exudate, or tonsillar enlargement, normal dentition Neck: no masses palpated, normal thyroid, no JVD or audible carotid bruits Heart: Normal rate and rhythm, no murmurs/rubs/gallops Lungs: no audible wheezes, crackles and normal breath sounds all lung muir Abdomen: Normal audible bowel sounds, no distension, No palpable masses, no organomegaly, no rebound/guarding/ or rigidity Musculoskeletal: muscle atrophy noted, ROM is limited due to being in hospital bed, no swelling bilateral lower extremities Vascular: Normal carotid, radial, femoral, posterior tibial, and dorsalis pedis pulses Lymph: no supraclavicular, axillary, or anterior/posterior cervical adenopathy Neuro: CN II-X grossly intact, normal sensation upper and lower extremities Constitutional Vital Signs, click to edit/add: Last Vital Signs Temp 98.3 F 10/23/22 04:00 Pulse 97 H 10/23/22 04:00 Resp 18 10/23/22 04:00 BP 105/66 10/23/22 01:00 Pulse Ox 95 10/23/22 05:01 O2 Del Method Nasal Cannula 10/23/22 05:01 O2 Flow Rate 3 10/23/22 05:01 Progress Note: Objective Labs Labs: Short CBC 10/23/22 Range/Units 03:58 WBC 13.1 H (4.0-11.0) 10^3/uL Hgb 10.3 L (12.0-16.0) g/dL Hct 31.4 L (36.0-48.0) % Plt Count 261 (150-450) 10^3/uL BMP 10/22/22 10/23/22 18:01 03:58 Sodium 141 141 Potassium 3.3 L 3.3 L Chloride 111 H 108 H Carbon Dioxide 23.1 26.8 BUN 12.0 8.0 Creatinine 1.10 H 0.99 Glucose 179 H 106 Calcium 7.6 L 8.1 L Liver Function 10/23/22 Range/Units 03:58 Total Bilirubin 0.7 (0.2-1.0) mg/dL AST 15 (15-37) U/L ALT 31 (14-59) U/L Alkaline Phosphatase 132 H (46-116) U/L Albumin 2.2 L (3.4-5.0) g/dL Progress Note: A&P Assessment and Plan (1) Community acquired bilateral lower lobe pneumonia: Assessment and Plan: evidence as shown by consolidations on CTA A of the chest, started Levaquin 750 mg daily IV continue Zosyn. Patient is saturating well on room air. Monitor continuous pulse ox. (2) Fluid overload: Assessment and Plan: potential repercussions of sepsis protocol and rapid fluid resuscitation for severe sepsis presentation. Improved on IV Lasix 40 mg once. Continue to monitor I's and O's, will get echocardiogram. (3) Acute pyelonephritis: Assessment and Plan: blood culture positive for Escherichia coli, Enterobacter will continue Zosyn and cultures and sensitivities pending, urine culture pending. (4) Sepsis: Assessment and Plan: has resolved. No longer hypotensive tachycardic or febrile. Lactate level normal Qualifiers: Sepsis type: Escherichia coli Severe sepsis acute organ dysfunction type: acute renal failure (5) Acute renal failure: Assessment and Plan: improving with IV fluids but had to stop IV fluids secondary fluid overload. Monitor daily (6) Acute hypokalemia: Assessment and Plan: continue to monitor and replace as needed (7) Calculus of both kidneys: Assessment and Plan: no acute issues, no evidence of stones and urine. (8) Hypomagnesemia: Assessment and Plan: continue to monitor and replace daily (9) Seizures: Assessment and Plan: continue home medications Plan patient is full code Lovenox for deep vein thrombosis prophylaxis Patient as inpatient status secondary to her sepsis and requiring ICU status for current condition.
--- NOTE | 2022-10-23 10:24 | CM.NOTE ---
Rounds made with Dr. Herrera. Dr. Herrera discussed testing added today--Echo. Levaquin IV added and IVF saline locked. No plan for discharge today.
[2022-10-23] MEDS: LEVOFLOXACIN IN DEXTROSE 5 % 750 MG/150 ML IV.SOLN 100 MG IV (10:30)
[2022-10-23] MEDS: KETOROLAC TROMETHAMINE 30 MG/ML VIAL 15 MG IVP ×2 (15:25→21:14)
[2022-10-23] MEDS: ONDANSETRON PF 4 MG/2 ML VIAL IV (18:46)
[2022-10-23] MEDS: ENOXAPARIN SODIUM 40 MG/0.4 ML SYRINGE SUBQ (21:15)
[2022-10-23] MEDS: PAROXETINE HCL 20 MG TABLET 30 MG PO (21:15)
[2022-10-24] VITALS (27 sets, daily range): BP systolic 116–127; BP diastolic 75–87; PULSE 81–113; RESP 14–57; TEMP 36.4–37.1; O2SAT 89–106
[2022-10-24] MEDS: PIPERACILLIN SODIUM/TAZOBACTAM 3.375 GM in 0.9 % SODIUM CHLORIDE 50 ML IV (03:17)
[2022-10-24] MEDS: KETOROLAC TROMETHAMINE 30 MG/ML VIAL 15 MG IVP ×4 (03:17→21:13)
[2022-10-24 05:05] LABS: Basophils Absolute Auto 0.1 10^3/uL (0.0-0.1); Basophils Percent Auto 0.5 % (0.2-2.0); Eosinophils Absolute Auto 0.1 10^3/uL (0.0-0.7); Eosinophils Percent Auto 1.1 % (0.9-7.0); Hematocrit 29.4 % (36.0-48.0); Hemoglobin 9.7 g/dL (12.0-16.0); Immature Granulocytes Abs Auto 0.18 10^3/uL (0.00-0.03); Immature Granulocytes Pct Auto 1.5 % (0.0-0.5); Lymphocytes Absolute Auto 3.1 10^3/uL (1.2-3.8); Mean Corpuscular Hemoglobin 27.2 pg (26.7-34.0); Mean Corpuscular Volume 82.4 fL (81.0-99.0); Mean Platelet Volume 9.9 fL (9.5-13.5); Monocytes Absolute Auto 1.4 10^3/uL (0.3-0.8); Neutrophils Percent Auto 58.9 % (43.0-75.0); Platelet Count 262 10^3/uL (150-450); Red Blood Count 3.57 10^6/uL (4.20-5.40); Red Cell Distribution Width 15.2 % (11.0-15.0); White Blood Count 11.8 10^3/uL (4.0-11.0)
[2022-10-24 05:45] LABS: Alanine Aminotransferase 24 U/L (14-59); Albumin Globulin Ratio 0.6; Albumin Level 2.1 g/dL (3.4-5.0); Alkaline Phosphatase 145 U/L (46-116); Anion Gap 12.5; Aspartate Amino Transferase 15 U/L (15-37); BUN Creatinine Ratio 9.4; Bilirubin Total 0.5 mg/dL (0.2-1.0); Calcium 8.2 mg/dL (8.5-10.1); Chloride 110 mmol/L (98-107); Estimated GFR (African America >60 (>=60); Estimated GFR (Non-African Ame >60 (>=60); Globulin 3.7 g/dL; Glucose 92 mg/dL (74-106); Potassium 3.5 mmol/L (3.5-5.1); Sodium 143 mmol/L (136-145); Total Protein 5.8 g/dL (6.4-8.2)
[2022-10-24] MEDS: OMEPRAZOLE 40 MG CAPSULE.DR PO (06:21)
--- NOTE | 2022-10-24 08:28 | PM.PN ---
Progress Note: Subjective Subjective Interval history: Patient was found to be septic in the emergency room and on admission. She was given approximately 4 L of fluid, and was given Rocephin for a presumed urinary tract infection. She had a fever of 103, tachycardic, hypotensive. She was admitted to ICU for further plan of care. She continues to improve daily. This morning she denies any flank pain, fevers or chills, no n/v/d and feels much better. She had a normal echocardiogram yesterday that was discussed with the patient. Also Added levaquin yesterday and some C&S have resulted. Exam Narrative Exam Narrative: General: Patient is alert, and oriented to person, place and time with normal affect, proper hygiene Skin: no visible rashes, or ulcers Head: atraumatic, acephalic Eyes: PERRLA, no nystagmus present, conjunctiva clear, no scleral icterus Ears: normal Tympanic Membrane, normal gross auditory acuity Nose: symmetric, no discharge, no maxillary or frontal sinus tenderness Mouth/Throat: no erythema, exudate, or tonsillar enlargement, normal dentition Neck: no masses palpated, normal thyroid, no JVD or audible carotid bruits Heart: Normal rate and rhythm, no murmurs/rubs/gallops Lungs: no audible wheezes, crackles and normal breath sounds all lung muir Abdomen: Normal audible bowel sounds, no distension, No palpable masses, no organomegaly, no rebound/guarding/ or rigidity Musculoskeletal: muscle atrophy noted, ROM is limited due to being in hospital bed, no swelling bilateral lower extremities Vascular: Normal carotid, radial, femoral, posterior tibial, and dorsalis pedis pulses Lymph: no supraclavicular, axillary, or anterior/posterior cervical adenopathy Neuro: CN II-X grossly intact, normal sensation upper and lower extremities Constitutional Vital Signs, click to edit/add: Last Vital Signs Temp 98.8 F 10/24/22 07:25 Pulse 90 10/24/22 07:25 Resp 20 10/24/22 07:25 BP 116/75 10/24/22 07:25 Pulse Ox 99 10/24/22 07:25 O2 Del Method Room Air 10/24/22 07:25 O2 Flow Rate 3 10/23/22 05:01 Progress Note: Objective Labs Labs: Short CBC 10/24/22 Range/Units 03:52 WBC 11.8 H (4.0-11.0) 10^3/uL Hgb 9.7 L (12.0-16.0) g/dL Hct 29.4 L (36.0-48.0) % Plt Count 262 (150-450) 10^3/uL BMP 10/24/22 03:52 Sodium 143 Potassium 3.5 Chloride 110 H Carbon Dioxide 24.0 BUN 9.0 Creatinine 0.96 Glucose 92 Calcium 8.2 L Liver Function 10/24/22 Range/Units 03:52 Total Bilirubin 0.5 (0.2-1.0) mg/dL AST 15 (15-37) U/L ALT 24 (14-59) U/L Alkaline Phosphatase 145 H (46-116) U/L Albumin 2.1 L (3.4-5.0) g/dL Progress Note: A&P Assessment and Plan (1) Community acquired bilateral lower lobe pneumonia: Assessment and Plan: evidence as shown by consolidations on CTA A of the chest, started Levaquin 750 mg daily IV stop Zosyn. Patient is saturating well on room air. Monitor continuous pulse ox. (2) Fluid overload: Assessment and Plan: potential repercussions of sepsis protocol and rapid fluid resuscitation for severe sepsis presentation. Improved on IV Lasix 40 mg once. Continue to monitor I's and O's, and normal echocardiogram. (3) Acute pyelonephritis: Assessment and Plan: blood culture positive and urine culture positive for Escherichia coli with sensitivities to levaquin. This should provide adequate coverage for pneumonia, Bacteremia and UTI as outpatient. (4) Sepsis: Assessment and Plan: has resolved. No longer hypotensive tachycardic or febrile. Lactate level normal Qualifiers: Sepsis type: Escherichia coli Severe sepsis acute organ dysfunction type: acute renal failure (5) Acute renal failure: Assessment and Plan: improved with IVF and treatment of underlying infection (6) Acute hypokalemia: Assessment and Plan: continue to monitor and replace as needed (7) Calculus of both kidneys: Assessment and Plan: no acute issues, no evidence of stones and urine (8) Hypomagnesemia: Assessment and Plan: continue to monitor and replace daily (9) Seizures: Assessment and Plan: continue home medications Plan patient is full code Lovenox for deep vein thrombosis prophylaxis Patient as inpatient status no longer requiring ICU status for current condition, probable discharge home tomorrow with close follow up on oral Levaquin.
[2022-10-24] MEDS: LAMOTRIGINE 100 MG TABLET PO ×2 (08:29→21:12)
[2022-10-24] MEDS: TAMSULOSIN HCL 0.4 MG CAPSULE PO (08:29)
[2022-10-24] MEDS: ARIPIPRAZOLE 5 MG TABLET 10 MG PO (08:29)
[2022-10-24] MEDS: LEVOFLOXACIN IN DEXTROSE 5 % 750 MG/150 ML IV.SOLN 100 MG IV (09:00)
--- NOTE | 2022-10-24 10:35 | CM.NOTE ---
Rounds made with Dr. Herrera, no discharge today. Pt will be transfered to Med-Surg floor. No discharge needs identified.
[2022-10-24] MEDS: SODIUM CHLORIDE/ALOE VERA SALINE NASAL GEL 14.1 GM TUBE 1 APPLIC NS (14:10)
--- NOTE | 2022-10-24 15:00 | P.CN_ITS ---
Per nutrition assessment completed 10/22/22, Bhaskar appears to be at moderate nutritional risk d/t poor appetite during times of N/V/GI distress. Please see nutrition assessment for further information. Consult Note: HPI Data of Consult Requesting Physician: Jazmine Herrera DO Primary Care Provider: Keturah Fine Consult Narrative Narrative: Nutrition consult and assessment completed 10/22/22. 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 syndromes with seizures of localized onset, not intractable, without status epilepticus (ICD-10) Seizure disorder ?G40.909 - Epilepsy, unspecified, not intractable, without status epilepticus (ICD-10) Seizures ?R56.9 - Unspecified convulsions (ICD-10) Social History Within the past year, how often did you have a drink containing alcohol: monthly or less Within the past year, how often did you have six or more drinks on one occasion: never Second hand tobacco smoke exposure: Yes Non-prescribed substance use: denies use Previous occupational history: unemployed Highest level of school completed/degree received: high school graduate In a typical week, how many times do you talk on the telephone with family, friends, or neighbors: 3 or more times per week How often do you get together with friends or relatives: 3 or more times per week How often do you attend congregational or mandaeism services: never Do you belong to any clubs or organizations such as congregational groups unions, fraternal or athletic groups, or school groups: no Little interest or pleasure in doing things: not at all Feeling down, depressed, or hopeless: not at all Feel stressed/tense/nervous/anxious/difficulty sleeping: only a little Due to disability, difficulty making decisions: No Do you think of yourself as: straight/heterosexual Gender Identity: female Meds Home Medications and Allergies Home Medications Medication Instructions Recorded Confirmed Type aripiprazole 10 mg tablet 10 mg PO DAILY 10/21/22 10/21/22 History hydroxyzine pamoate 50 mg capsule 50 mg PO DAILY PRN anxiety 10/21/22 10/21/22 History lamotrigine 100 mg tablet 100 mg PO BID 10/21/22 10/21/22 History naproxen 500 mg tablet 500 mg PO Q12H 10/21/22 10/22/22 History omeprazole 40 mg capsule,delayed 40 mg PO DAILY 10/21/22 10/21/22 History release paroxetine HCl 30 mg tablet 30 mg PO .QHS 10/21/22 10/22/22 History prazosin 1 mg capsule 1 mg PO DAILY 10/21/22 10/21/22 History tamsulosin 0.4 mg capsule 0.4 mg PO DAILY 10/21/22 10/21/22 History levofloxacin 750 mg tablet 750 mg PO DAILY 5 days #5 tabs 10/25/22 Rx Allergies Allergy/AdvReac Type Severity Reaction Status Date / Time montelukast [From [facility]] Allergy Mild Rash Verified 10/22/22 08:49 Exam Constitutional Vital Signs, click to edit/add: Last Vital Signs Temp 97.6 F 10/24/22 13:24 Pulse 96 H 10/24/22 13:25 Resp 18 10/24/22 13:24 BP 124/80 10/24/22 13:24 Pulse Ox 93 L 10/24/22 13:24 O2 Del Method Room Air 10/24/22 13:24 O2 Flow Rate 3 10/23/22 05:01 Results Labs Labs: Short CBC 10/24/22 Range/Units 03:52 WBC 11.8 H (4.0-11.0) 10^3/uL Hgb 9.7 L (12.0-16.0) g/dL Hct 29.4 L (36.0-48.0) % Plt Count 262 (150-450) 10^3/uL BMP 10/24/22 03:52 Sodium 143 Potassium 3.5 Chloride 110 H Carbon Dioxide 24.0 BUN 9.0 Creatinine 0.96 Glucose 92 Calcium 8.2 L Liver Function 10/24/22 Range/Units 03:52 Total Bilirubin 0.5 (0.2-1.0) mg/dL AST 15 (15-37) U/L ALT 24 (14-59) U/L Alkaline Phosphatase 145 H (46-116) U/L Albumin 2.1 L (3.4-5.0) g/dL ABG ABG results: 10/21/22 19:48 VBG pH 7.414 VBG pCO2 34.9 L Assessment and Plan Assessment and Plan (1) Community acquired bilateral lower lobe pneumonia: (2) Fluid overload: (3) Acute pyelonephritis: (4) Sepsis: Qualifiers: Sepsis type: Escherichia coli Severe sepsis acute organ dysfunction type: acute renal failure (5) Acute renal failure: (6) Acute hypokalemia: (7) Calculus of both kidneys: (8) Hypomagnesemia: (9) Seizures: (10) Seizure disorder:
[2022-10-24] MEDS: PAROXETINE HCL 20 MG TABLET 30 MG PO (21:12)
[2022-10-24] MEDS: ENOXAPARIN SODIUM 40 MG/0.4 ML SYRINGE SUBQ (21:13)
[2022-10-25] VITALS (7 sets, daily range): BP systolic 117; BP diastolic 77; PULSE 79–102; RESP 16; TEMP 36.6; O2SAT 94
[2022-10-25] MEDS: KETOROLAC TROMETHAMINE 30 MG/ML VIAL 15 MG IVP (04:18)
[2022-10-25] MEDS: ONDANSETRON PF 4 MG/2 ML VIAL IV (04:18)
[2022-10-25 04:53] LABS: Hematocrit 30.5 % (36.0-48.0); Hemoglobin 9.9 g/dL (12.0-16.0); Mean Corpuscular HGB Conc 32.5 g/dL (29.9-35.2); Mean Corpuscular Hemoglobin 26.6 pg (26.7-34.0); Mean Platelet Volume 9.6 fL (9.5-13.5); Platelet Count 302 10^3/uL (150-450); Red Blood Count 3.72 10^6/uL (4.20-5.40); Red Cell Distribution Width 15.6 % (11.0-15.0)
[2022-10-25 05:06] LABS: Alanine Aminotransferase <6 U/L (14-59); Albumin Globulin Ratio 0.5; Albumin Level 2.1 g/dL (3.4-5.0); Alkaline Phosphatase 175 U/L (46-116); Anion Gap 11.5; Aspartate Amino Transferase 10 U/L (15-37); BUN Creatinine Ratio 14.4; Bilirubin Total 0.4 mg/dL (0.2-1.0); Calcium 8.1 mg/dL (8.5-10.1); Carbon Dioxide 24.1 mmol/L (21.0-32.0); Chloride 109 mmol/L (98-107); Estimated GFR (African America >60 (>=60); Estimated GFR (Non-African Ame >60 (>=60); Globulin 3.9 g/dL; Glucose 101 mg/dL (74-106); Potassium 3.6 mmol/L (3.5-5.1); Sodium 141 mmol/L (136-145)
[2022-10-25] MEDS: SODIUM CHLORIDE/ALOE VERA SALINE NASAL GEL 14.1 GM TUBE 1 APPLIC NS (05:12)
[2022-10-25] MEDS: OMEPRAZOLE 40 MG CAPSULE.DR PO (05:31)
[2022-10-25 05:49] LABS: Band Neutrophils Absolute 0.1 10^3/uL (0.0-0.3); Lymphocytes Absolute Manual 4.29 10^3/uL (1.20-3.80); Monocytes Absolute Manual 0.66 10^3/uL (0.30-0.80); Segmented Neut Absolute Manual 5.61 10^3/uL (1.4-6.5)
[2022-10-25 05:50] LABS: Atypical Lymphocytes Abs Man 0.2; Eosinophils Absolute Manual 0.11 10^3/uL (0.00-0.70)
[2022-10-25] MEDS: TAMSULOSIN HCL 0.4 MG CAPSULE PO (08:43)
[2022-10-25] MEDS: ARIPIPRAZOLE 5 MG TABLET 10 MG PO (08:43)
[2022-10-25] MEDS: LAMOTRIGINE 100 MG TABLET PO (08:43)
--- NOTE | 2022-10-25 11:13 | P.DS_ITS ---
DS: Providers Provider Date of admission: 10/21/22 22:55 Primary care physician: Keturah Fine Consults: 10/21/22 Consult to Dietitian Routine Reason For Exam: day of n/v r/t infectous process Reason for consultation: days of N/V r/t infectious process. loss of appetite Has provider been notified: Yes DS: Diagnosis Discharge Diagnosis (1) Acute pyelonephritis: (2) Community acquired bilateral lower lobe pneumonia: (3) Sepsis: Qualifiers: Sepsis type: Escherichia coli Severe sepsis acute organ dysfunction type: acute renal failure (4) Acute renal failure: (5) Fluid overload: (6) Acute hypokalemia: (7) Hypomagnesemia: (8) Calculus of both kidneys: (9) Seizure disorder: DS: Summary Hospital Course Hospital Course: Reason for admission: See ER note and H&P for details. 27 y/o female to ER with right flank pain. C/o not feeling well for 2 weeks. To ER in [place] and CT showed stone in right UVJ. Given IV fluids and discharged with flomax. Continued to have pain and worsened. [place] feverish and chills. Severe weakness and fatigue and to ER. Temp 103. WBC elevated. Patient was tachycardic with hypotension and treated for sepsis. Blood cultures obtained and given IV fluids. Admitted for treatment. Hospital course: Started rocphin for sepsis and pyelonephritis and continued IV fluids. US kidneys showed bilateral stones and changes consistent with right pyelo. Blood and urine cultures showed UTI and pyelo due to E. coli. Developed Increased SOB and hypoxia. CTA negative for PE but showed pneumonia and fluid overload. Given IV lasix and stopped fluids. Added levaquin. Gradually improved. Cultures sensitive to both levaquin and rocephin. WBC normal and afebrile. Normal appetite and ambulating well. Discharged home in stable condition. Will take levaquin x 5 days. Resume home medication as directed. F/u with PCP in 1-2 weeks. Time Spent with Patient Time attestation: Total time spent providing and/or coordinating discharge services: Exam Constitutional Vital Signs, click to edit/add: Last Vital Signs Temp 97.8 F 10/25/22 04:25 Pulse 91 H 10/25/22 10:17 Resp 16 10/25/22 04:25 BP 117/77 10/25/22 04:25 Pulse Ox 94 L 10/25/22 04:25 O2 Del Method Room Air 10/25/22 04:25 O2 Flow Rate 3 10/23/22 05:01 Documenting provider has reviewed patient's vital signs: yes Common normals: no apparent distress, oriented x3 and alert HENMT Common normals: normocephalic Eye Common normals: PERRL and EOMs intact bilaterally Respiratory Common normals: normal respiratory effort and clear to auscultation bilaterally Cardio Common normals: regular rate, regular rhythm, no gallops, no murmurs and no rub GI Common normals: Normal to inspection, nondistended, normoactive bowel sounds present and non-tender Extremity Common normals: no pedal edema DS: Data Data Completed and Pending Labs on day of discharge: Labs from last 24 hours 10/25/22 03:58 WBC 11.0 RBC 3.72 L Hgb 9.9 L Hct 30.5 L MCV 82.0 MCH 26.6 L MCHC 32.5 RDW 15.6 H Plt Count 302 MPV 9.6 Seg Neuts % (Manual) 51.0 Band Neutrophils % 1.0 Lymphocytes % (Manual) 39.0 Atypical Lymphs % (Man) 2.0 Monocytes % (Manual) 6.0 Eosinophils % (Manual) 1.0 Basophils % (Manual) 0.0 L Neutrophils # (Manual) 5.61 Band Neutrophils # 0.1 Lymphocytes # (Manual) 4.29 H Abs Atypical Lymphs Man 0.2 Monocytes # (Manual) 0.66 Eosinophils # (Manual) 0.11 Basophils # (Manual) 0.00 Sodium 141 Potassium 3.6 Chloride 109 H Carbon Dioxide 24.1 Anion Gap 11.5 BUN 13.0 Creatinine 0.90 Est GFR ( Amer) >60 Est GFR (Non-Af Amer) >60 BUN/Creatinine Ratio 14.4 Glucose 101 Calcium 8.1 L Total Bilirubin 0.4 AST 10 L ALT <6 L Alkaline Phosphatase 175 H Total Protein 6.0 L Albumin 2.1 L Globulin 3.9 Albumin/Globulin Ratio 0.5 Preliminary micro results at discharge 10/21/22 19:28 Blood Culture Result 1 - Preliminary Blood Escherichia coli Discharge Plan Discharge Disposition: Home, Self-Care Condition: Good Discharge Medications: New levofloxacin 750 mg tablet 750 mg PO DAILY 5 Days Qty: 5 0RF Continued aripiprazole 10 mg tablet 10 mg PO DAILY hydroxyzine pamoate 50 mg capsule 50 mg PO DAILY PRN (Reason: anxiety) lamotrigine 100 mg tablet 100 mg PO BID omeprazole 40 mg capsule,delayed release(DR/EC) 40 mg PO DAILY paroxetine HCl 30 mg tablet 30 mg PO .QHS prazosin 1 mg capsule 1 mg PO DAILY tamsulosin 0.4 mg capsule 0.4 mg PO DAILY naproxen 500 mg tablet 500 mg PO Q12H Activity: resume usual activities as tolerated Diet: advance to your usual diet Forms: Portal Instructions Follow Up Appointments: Dr Keturah Ndiaye [facility] Thursday @ 1:30 pm,
--- NOTE | 2022-10-29 15:44 | CM.DCFOLLOWU ---
1st attempt discharge follow up call made on 10/28/22, no answer at this time 2nd attempt discharge follow up call made on 10/29/22, no answer at this time
--- NOTE | 2022-10-31 15:03 | CM.DCFOLLOWU ---
3 discharge follow up calls were attempted 10/28/22 10/29/22 10/31/22 no answer on any attempts
== END 2022-10-25 11:47 | disposition home or self-care (01) | DRG 720 ==
LOC: ER 22:58 → ICU 23:04 → MS 10-24 13:14
PROVIDERS: Internal Medicine; Admitting Provider Family Medicine; Emergency Provider Emergency Medicine; PCP Family Medicine; Visit Provider Family Medicine
DX: A41.51 Sepsis due to Escherichia coli [E. coli] (principal); N10 Acute pyelonephritis; N20.0 Calculus of kidney; R65.20 Severe sepsis without septic shock; N17.9 Acute kidney failure, unspecified; J18.9 Pneumonia, unspecified organism; G40.909 Epilepsy, unspecified, not intractable, without status epilepticus; E87.70 Fluid overload, unspecified; T50.3X5A Adverse effect of electrolytic, caloric and water-balance agents, initial encounter; B95.2 Enterococcus as the cause of diseases classified elsewhere; R09.02 Hypoxemia; E87.6 Hypokalemia; E83.42 Hypomagnesemia; Z79.899 Other long term (current) drug therapy; Z88.8 Allergy status to other drugs, medicaments and biological substances
CPT/HCPCS: 0202U; 36415; 71045; 71275; 76775; 80048; 80053; 81001; 82800; 83605; 83735; 83880; 84484; 85025; 85027; 87040; 87086; 87150; 87186; 93005; 93306; 94761; 96365; 96366; 96367; 96368; 96372; 96375; 96376; 99285; Q3014; Q9967